=== PATIENT | male | born 1965 ===

== ENCOUNTER 2018-08-29 12:18 | Emergency (ER) | payer MEDICAID, OTHER ==
--- NOTE | 2018-08-29 13:24 | ED PDOC ---
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 Patient reports symptoms were on and off for the past 2 weeks but patient notes similar symptoms occurred at least a year ago. Patient notes he has not seen a doctor specifically for dizziness episodes. Patient denies any b lurry vision, double vision, nausea, vomiting, or any other complaints. No PMD Time/Duration: > week (2 weeks) Symptom Onset: Gradual Symptom Course: Unchanged Activities at Onset: Light Context: Home Past Medical History - Provider Review Nursing Documentation Reviewed: Yes - Psychiatric Hx Substance Use: No Family/Social History - Physician Review Nursing Documentation Reviewed: Yes Family/Social History: No Known Family HX Smoking Status: Never Smoked Hx Alcohol Use: Yes Frequency of alcohol use: Socially Hx Substance Use: No Allergies/Home Meds Allergies/Adverse Reactions: Allergies No Known Allergies Allergy (Verified 08/29/18 12:31) Review of Systems - Review of Systems Eyes: absent: Vision Changes (no blurry or double vision) Gastrointestinal: absent: Nausea, Vomiting Neurological: Dizziness Physical Exam - Physical Exam Narrative Physical Exam (Text): 08/29/18 13:23 Gen: VS reviewed, alert, well developed, well nourished, nontoxic, mild distress. ENT: normal pharynx. Eye: EOMI, PERRL, no nystagmus. Neck: no JVD, supple, no adenopathy. CV: regular rate, regular rhythm, no rubs, no murmur, no gallops, S1, S2, pulses equal and strong. Pulm: no distress, clear to auscultation, no wheeze, no rhonchi, breath sounds equal, no rales. Abd: soft, nontender, no guarding, no rebound, no rigidity, normal bowel sounds. Ext: no edema. Skin: good color, no rash, no cyanosis. Psych: responds appropriately to questions, normal affect. Neuro: oriented x 3, CN2-12 intact grossly, motor intact, sensation intact, normal finger to nose, normal heel to rehman, normal gait. Vital Signs Reviewed: Yes Vital Signs Temp Pulse Resp BP Pulse Ox 08/29/18 12:28 97.7 F 69 18 123/88 99 Temperature: Afebrile Blood Pressure: Normal Pulse: Regular Respiratory Rate: Normal Appearance: Positive for: Well-Appearing Mental Status: Positive for: Alert and Oriented X 3 Medical Decision Making ED Course and Treatment: 08/29/18 13:24 Impression: 53 year old male presenting to the emergency room complaining of dizziness. Plan: -- Head CT without contrast -- CMP -- CBC -- Meclizine -- Reassess and disposition Progress Notes: 08/29/18 15:43 patient feels better and ready to go home. patient no longer feels the vertigo. patient was seen for intermittent vertigo, benign physical exam without neuro deficits, symptoms resolved during ED course. clinical presentation consistent with benign peripheral vertigo, stable for dc and follow up with ENT. - RAD Interpretation Narrative RAD Interpretations (Text): 08/29/18 14:57 Dictator: Allison Milian MD Procedure: CT Head without contrast Impression: No acute intracranial pathology identified. Mucosal polyp/retention cysts involving bilateral maxillary sinuses and the left sphenoid sinus. Mucosal thickening involving the ethmoid air cells, sphenoid sinuses, and maxillary sinuses. Correlate clinically for sinusitis. 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 I have reviewed the chart and agree that the record accurately reflects my personal performance of the history, physical exam, medical decision making, and the department course for this patient. I have also personally directed, reviewed, and agree with the discharge instructions and d isposition. Disposition/Present on Arrival - Present on Arrival Any Indicators Present on Arrival: No History of DVT/PE: No History of Uncontrolled Diabetes: No Urinary Catheter: No History of Decub. Ulcer: No History Surgical Site Infection Following: None - Disposition Have Diagnosis and Disposition been Completed?: Yes Diagnosis: Vertigo Disposition: HOME/ ROUTINE Disposition Time: 15:56 Patient Plan: Discharge Patient Problems: Current Active Problems Problem Status Onset Vertigo Acute Condition: STABLE Discharge Instructions (ExitCare): Vertigo (a Type of Dizziness) Print Language: KOSOVAN Additional Instructions: return for any new or worsening symptoms. Prescriptions: Meclizine [Meclizine*] 25 mg PO TID #15 tab Referrals: [facility] [Primary Care Provider] - Follow up with primary Brandon Dennis DO [Staff Provider] - Follow up with primary Forms: [place] ([place])
[2018-08-29 13:38] LABS: ALB/GLOB RATIO 1.3 (1.1-1.8); ALBUMIN 4.5 g/dL (3.0-4.8); ALT/SGPT 59 U/L (7-56); AST/SGOT 37 U/L (17-59); BLOOD UREA NITROGEN 17 mg/dL (7-21); CALCIUM 9.7 mg/dL (8.4-10.5); GFR NON-AFRICAN AMERICAN > 60
[2018-08-29 13:43] LABS: BASO # 0.02 K/mm3 (0.0-2.0); BASO % 0.4 % (0.0-3.0); EOS # 0.3 (0.0-0.7); HEMOGLOBIN 14.6 g/dL (14.0-18.0); LYMPH # 2.1 (1.2-3.4); LYMPH % 36.5 % (22.0-35.0); MEAN CELL VOLUME 86.2 fl (80.0-105.0); MEAN CORPUSCULAR HEMOGLOBIN 28.7 pg (25.0-35.0); MEAN CORPUSCULAR HGB CONC 33.3 g/dl (31.0-37.0); MEAN PLATELET VOLUME 11.5 fl (7.0-11.0); MONO # 0.5 (0.1-0.6); MONO % 8.5 % (1.0-6.0); RBC 5.09 10^6/uL (3.5-6.1); RED CELL DISTRIBUTION WIDTH 13.6 % (11.5-14.5); WHITE BLOOD COUNT 5.6 10^3/uL (4.5-11.0)
--- NOTE | 2018-08-29 14:37 | CT ---
Date of service: 08/29/2018 PROCEDURE: CT HEAD WITHOUT CONTRAST. HISTORY: dizziness,vertigo COMPARISON: None available. TECHNIQUE: Axial computed tomography images were obtained through the head/brain without intravenous contrast. Radiation dose: Total exam DLP = 889.69 mGy-cm. This CT exam was performed using one or more of the following dose reduction techniques: Automated exposure control, adjustment of the mA and/or kV according to patient size, and/or use of iterative reconstruction technique. FINDINGS: HEMORRHAGE: No intracranial hemorrhage. BRAIN: No mass effect or edema. The ramachandran-white matter differentiation appears intact. Please note that MRI with diffusion imaging is more sensitive in the detection of acute ischemic event. VENTRICLES: No hydrocephalus. CALVARIUM: Unremarkable. PARANASAL SINUSES: Mucosal polyp/retention cysts involving bilateral maxillary sinuses and the left sphenoid sinus. Mucosal thickening involving the ethmoid air cells, sphenoid sinuses, and maxillary sinuses. MASTOID AIR CELLS: Unremarkable as visualized. No inflammatory changes. OTHER FINDINGS: None. IMPRESSION: No acute intracranial pathology identified. Mucosal polyp/retention cysts involving bilateral maxillary sinuses and the left sphenoid sinus. Mucosal thickening involving the ethmoid air cells, sphenoid sinuses, and maxillary sinuses. Correlate clinically for sinusitis.
[2018-08-29 16:18] VITALS: BP 128/91; PULSE 85; RESP 16; TEMP 98; O2SAT 96
--- NOTE | 2018-08-29 20:39 | CARD ---
APPROVED REPORT Date of service: 08/29/2018 EKG Measurement Heart [id number] [id number] <Conclusion> Normal sinus rhythm Low voltage QRS
== END 2018-08-29 16:16 | disposition home or self-care (01) ==
LOC: ED 12:18
DX: R42 Dizziness and giddiness (principal)